=== PATIENT | female | born 1980 | race Two or more races ===

== ENCOUNTER 2021-04-09 13:20 | Emergency (ER) | payer SELFPAY ==
[~2021-04-09] VITALS: Ht 172.7 cm; Wt 72.6 kg
[2021-04-09 14:31] VITALS: BP 145/88
[2021-04-09] MEDS ORDERED: AMOX500T86 PO (14:37)
[2021-04-09] MEDS ORDERED: TETANUS-DIPTH-ACEL PERTUSSIS 0.5ML SYR Tdap IM ONE (14:45)
[2021-04-09] MEDS ORDERED: FLUC150T38 PO (15:09)
== END 2021-04-09 15:10 | disposition home or self-care (01) ==
LOC: EDBD 13:20 → ER 13:20
DX: S81.811A Laceration without foreign body, right lower leg, initial encounter (principal); W54.0XXA Bitten by dog, initial encounter; Y93.89 Activity, other specified; Y92.89 Other specified places as the place of occurrence of the external cause; Y99.8 Other external cause status
CPT/HCPCS: 12002; 90471; 90715